=== PATIENT | female | born 1990 | race Caucasian/White ===

== ENCOUNTER → 2017-12-17 | Outpatient (CLI) | payer OTHER | END | disposition home or self-care (01) | LOC: RAD 19:07 | DX: R10.31 Right lower quadrant pain (principal) | CPT/HCPCS: 76857 ==

== ENCOUNTER → 2017-12-18 | Outpatient (CLI) | payer OTHER ==
[~2017-12-18] MED LIST: OMNIPAQUE 350 MG/ML, 100ML BOTTLE ONE
== END | disposition home or self-care (01) ==
LOC: RAD 11:31
DX: D73.89 Other diseases of spleen (principal); N20.0 Calculus of kidney; N83.202 Unspecified ovarian cyst, left side; N83.201 Unspecified ovarian cyst, right side
CPT/HCPCS: 74177; Q9967

== ENCOUNTER 2019-08-11 20:05 | Emergency (ER) | payer OTHER ==
[~2019-08-11] VITALS: Ht 162.6 cm; Wt 65.0 kg
[2019-08-11 20:24] VITALS: BP 113/78
[2019-08-11] MEDS ORDERED: IBUPROFEN 600 MG TABLET ONE (20:48)
[2019-08-11] MEDS ORDERED: PLEASE ENTER ALLERGIES MC SCH (21:00)
[2019-08-11] MEDS ORDERED: IBUPROFEN 600 MG TABLET PO ONE (21:00)
[2019-08-11] MEDS ORDERED: NEOSPORIN OINT. PKT 1 PACKET ONE ×2 (21:02→21:04)
== END 2019-08-11 21:19 ==
LOC: ED 21:13
DX: S60.221A Contusion of right hand, initial encounter (principal); X58.XXXA Exposure to other specified factors, initial encounter; Y93.89 Activity, other specified; Y92.488 Other paved roadways as the place of occurrence of the external cause; Y99.8 Other external cause status
CPT/HCPCS: 99283

== ENCOUNTER 2020-09-28 07:03 | Emergency (ER) | payer OTHER ==
[~2020-09-28] VITALS: Ht 162.6 cm; Wt 60.0 kg
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
--- NOTE | 2020-09-28 07:16 | NUR ---
PT TO CT
[2020-09-28 07:31] VITALS: BP 125/82
--- NOTE | 2020-09-28 07:31 | NUR ---
pt back from ct
--- NOTE | 2020-09-28 07:51 | NUR ---
PT TO XR
--- NOTE | 2020-09-28 08:36 | NUR ---
Knee immobalizer in place, dc instructions reviewed.
== END 2020-09-28 08:45 | disposition home or self-care (01) ==
LOC: ED 08:39
DX: S83.92XA Sprain of unspecified site of left knee, initial encounter (principal); S16.1XXA Strain of muscle, fascia and tendon at neck level, initial encounter; S09.90XA Unspecified injury of head, initial encounter; V49.49XA Driver injured in collision with other motor vehicles in traffic accident, initial encounter; Y93.89 Activity, other specified; Y92.410 Unspecified street and highway as the place of occurrence of the external cause; Y99.8 Other external cause status
CPT/HCPCS: 29505; 70450; 72125; 99285